=== PATIENT | male | born 1955 | race Two or more races ===

== ENCOUNTER 2020-04-29 12:31 | Emergency (ER) | payer OTHER ==
[~2020-04-29] VITALS: Ht 175.3 cm; Wt 83.5 kg
[2020-04-29] MEDS ORDERED: TAMSULOSIN HCL0.4 MG (12:48)
== END 2020-04-29 18:23 | disposition home or self-care (01) ==
LOC: ER 12:31
DX: K64.8 Other hemorrhoids (principal); K62.5 Hemorrhage of anus and rectum; Z03.818 Encounter for observation for suspected exposure to other biological agents ruled out